=== PATIENT | male | born 1990 | race African-American/Black ===

== ENCOUNTER 2025-03-30 23:28 | Inpatient (IN) | payer OTHER ==
[~2025-03-30] VITALS: Ht 188 cm; Wt 89.5 kg
[2025-03-30 23:50] VITALS: BP 113/75; TEMP 97.9; O2SAT 96
[2025-03-31] MEDS ORDERED: MAGNESIUM HYDROXIDE 30 ML LIQUID UDC PO PRN (00:15)
[2025-03-31] MEDS ORDERED: ACETAMINOPHEN 325 MG TABLET PO PRN (00:15)
[2025-03-31] MEDS ORDERED: ZOLPIDEM 5 MG TABLET PO PRN (00:15)
[2025-03-31] MEDS ORDERED: ONDANSETRON 4 MG/2 ML VIAL IV PRN (00:15)
[2025-03-31] MEDS: IV NS 1000 ML 1,000 ML IV PRN (00:58)
[2025-03-31] MEDS ORDERED: METRONIDAZOLE 500 MG/NS 100ML 100 ML IV ONE (05:20)
[2025-03-31 05:59] VITALS: BP 91/42; TEMP 97.8; O2SAT 93
[2025-03-31] MEDS: METRONIDAZOLE 500 MG/NS 100ML 500 MG in PREMIXED 1 EACH IV SCH (06:21)
[2025-03-31] MEDS: PANTOPRAZOLE SODIUM 40 MG TABLET.DR PO SCH (06:24)
[2025-03-31 06:36] LABS: PLATELET COUNT (AUTO) 247 K/uL (152-348); RED BLOOD CELL COUNT(AUTO) 4.21 MIL/uL (4.06-5.63); RED CELL DISTRIBUTION WIDTH 12.0 % (12.1-16.2); WHITE BLOOD COUNT (AUTO) 5.2 K/uL (3.6-10.2)
[2025-03-31 06:59] LABS: ASPARTATE AMINOTRANSFERASE < 5 U/L (15-37); CREATININE 0.9 mg/dL (0.6-1.3); SODIUM SERUM 145 mmol/L (136-145); TOTAL PROTEIN, SERUM 6.5 g/dL (6.4-8.2); UREA NITROGEN, BLOOD 13 mg/dL (7-18)
[2025-03-31 07:51] LABS: LYMPHOCYTES % (MANUAL) 29 % (20-40); NEUTROPHILS % (MANUAL) 44 % (42-75)
[2025-03-31 07:52] LABS: EOSINOPHILS % (MANUAL) 10 % (0-8); MONOCYTES % (MANUAL) 17 % (2-10)
[2025-03-31 07:53] LABS: PLATELET ESTIMATE ADEQUATE
[2025-03-31] MEDS: VANCOMYCIN HCL 250 MG CAPSULE PO SCH (09:32)
[2025-03-31] MEDS ORDERED: ALBU8.5H8 INH (10:55)
[2025-03-31 11:27] VITALS: BP 102/68; TEMP 98.3; O2SAT 95
[2025-03-31 14:54] VITALS: BP 103/58; TEMP 98.3; O2SAT 96
[2025-03-31 19:52] VITALS: BP 101/62; TEMP 98.1; O2SAT 96
[2025-04-01 06:39] LABS: PLATELET COUNT (AUTO) 241 K/uL (152-348); RED BLOOD CELL COUNT(AUTO) 4.20 MIL/uL (4.06-5.63); RED CELL DISTRIBUTION WIDTH 12.1 % (12.1-16.2); WHITE BLOOD COUNT (AUTO) 5.0 K/uL (3.6-10.2)
[2025-04-01 06:43] LABS: CREATININE 1.0 mg/dL (0.6-1.3); SODIUM SERUM 142.0 mmol/L (136-145); UREA NITROGEN, BLOOD 12.0 mg/dL (7-18)
[2025-04-01 06:49] VITALS: BP 95/43; TEMP 97.4; O2SAT 96
[2025-04-01 07:22] LABS: LYMPHOCYTES % (MANUAL) 0 % (20-40); NEUTROPHILS % (MANUAL) 0 % (42-75)
[2025-04-01 10:29] VITALS: BP 116/71; TEMP 98.6; O2SAT 98
[2025-04-01 11:04] VITALS: BP 105/63; TEMP 97.6; O2SAT 99
[2025-04-01 15:03] VITALS: BP 100/53; TEMP 97.6; O2SAT 97
[2025-04-01] MEDS ORDERED: ACID1TAB4 PO (20:21)
[2025-04-01] MEDS ORDERED: VANC250C12 PO (20:21)
== END 2025-04-01 19:45 | disposition home or self-care (01) | DRG 248 ==
LOC: MEDSURG3 23:28
PROVIDERS: ADMIT Registered Nurse Psychiatric/Mental Health; ATTEND Internal Medicine
DX: A04.71 Enterocolitis due to Clostridium difficile, recurrent (principal); E83.51 Hypocalcemia; Z88.0 Allergy status to penicillin
CPT/HCPCS: 36415; 70030-TC; 83735; 84100; 85025; G0378; J3490; J7040; J8499